=== PATIENT | male | born 1960 | race Caucasian/White ===

== ENCOUNTER → 2024-12-27 11:49 | Outpatient (REF) | payer OTHER, SELFPAY | LOC: MRI 3T 11:49 | PROVIDERS: ATTENDING PHYSICIAN Internal Medicine Hematology & Oncology; FAMILY PHYSICIAN Family Medicine | DX: C20 Malignant neoplasm of rectum (principal) | CPT/HCPCS: 72197; A9575 ==

== ENCOUNTER → 2025-01-08 07:38 | Outpatient (REF) | payer OTHER, SELFPAY | LOC: PET 07:38 | PROVIDERS: ATTENDING PHYSICIAN Internal Medicine Hematology & Oncology | DX: C20 Malignant neoplasm of rectum (principal) | CPT/HCPCS: 78815; A9552 ==